=== PATIENT | female | born 1945 | race Caucasian/White ===

== ENCOUNTER 2024-08-24 11:59 | Inpatient (IN) | payer OTHER ==
[~2024-08-24] VITALS: Ht 167.6 cm; Wt 60.0 kg
[~2024-08-24 11:59] MED LIST: NITR-87 PO
--- NOTE | 2024-08-24 12:17 | ED.PDOC ---
Altered Mental Status HPI Comments This is a 79 year old female BIBA presenting to the ED with chief complaint of ALOC. EMS reports that the patient is coming from home where she lives with family with concern of ALOC. EMS relays that the patient's family has noted patient is taking her own Insulin and checking her own blood sugar lately, however, the patient has been confused as of late. EMS states that the patient's blood sugar has been up and down according to family and today patient was more confused than usual. EMS notes patient's BG on scene was 67 and she was A/O x2, but when given glucose, she became A/O x4 soon after. Patent reports having some hip pain at this time. Patient denies any chest pain, SOB, N/V/D, dizziness, headache, fever, or chills. Chief Complaint: ALOC Time Seen by MD: 12:14 Primary Care Provider: ARIELLE Reviewed Notes: Nurses Notes, Medical Program Specialist Notes, Medications, Allergies Allergies: Coded Allergies: NO KNOWN ALLERGIES (Unverified , 09/08/23) Home Meds Active Scripts Nitrofurantoin Monohydrate Mac (Macrobid) 100 Mg Cap, 100 MG PO BID for 10 Days, #20 CAP Prov:YANI MIRANDA MD 09/08/23 Information Source: Patient, Emergency Med Personnel Mode of Arrival: EMS Severity: Moderate Timing: Hours Duration: Since onset Prehospital treatment: None Quality: Decreased Alertness, Change in Behavior, Confusion Recent: None History of: Dementia, Diabetes Past Medical History PAST MEDICAL HISTORY: Dementia, DM, High Lipids, HTN Surgical History (Other): Heart surgery 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 [employer]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 Hx Family History Family History: Reviewed,noncontributory to illness Social History Smoker: Non-Smoker Alcohol: Denies ETOH Use Drugs: Denies Drug Use Lives In: Home Constitutional: denies: chills, diaphoresis, fatigue, fever, malaise, sweats, weakness, others EENTM: denies: blurred vision, double vision, ear bleeding, ear discharge, ear drainage, ear pain, ear ringing, eye pain, eye redness, hearing loss, mouth pain, mouth swelling, nasal discharge, nose bleeding, nose congestion, nose pain, photophobia, tearing, throat pain, throat swelling, voice changes, others Respiratory: denies: cough, hemoptysis, orthopnea, SOB at rest, shortness of breath, SOB with excertion, stridor, wheezing, others Cardiovascular: denies: chest pain, dizzy spells, diaphoresis, Dyspnea on exertion, edema, irregular heart beat, left arm pain, lightheadedness, palpitations, PND, syncope, others Gastrointestinal: denies: abdomen distended, abdominal pain, blood streaked bowels, constipated, diarrhea, dysphagia, difficulty swallowing, hematemesis, melena, nausea, poor appetite, poor fluid intake, rectal bleeding, rectal pain, vomiting, others Genitourinary: denies: abnormal vagina bleeding, burning, dyspareunia, dysuria, flank pain, frequency, hematuria, incontinence, pain, , vagina discharge, urgency, others Neurological: denies: dizziness, fainting, headache, left sided numbness, left sided weakness, numbness, paresthesia, pre-existing deficit, right sided numbness, right sided weakness, seizure, speech problems, tingling, tremors, weakness, others Musculoskeletal: reports: others (Hip pain); denies: back pain, gout, joint pain, joint swelling, muscle pain, muscle stiffness, neck pain Integumetry: denies: bruises, change in color, change in hair/nails, dryness, laceration, lesions, lumps, rash, wounds, others Allergic/Immunocompromised: denies: Difficulty Healing, Frequent Infections, Hives, Itching, others Hematologic/Lymphatic: denies: anemia, blood clots, easy bleeding, easy bruising, swollen glands, others Endocrine: denies: excessive hunger, excessive sweating, excessive thirst, excessive urination, flushing, intolerance to cold, intolerance to heat, unexplained weight gain, unexplained weight loss, others Psychiatric: denies: anxiety, bipolar disorder, depression, hopeless, panic disorder, schizophrenia, sleepless, suicidal, others Unable to Obtain due to: Altered Mental Status All Other Systems: Reviewed and Negative Physical Exam General Appearance: Moderate Distress, Obese HEENT: Normal ENT Inspection, Pharynx Normal, TMs Normal Neck: Full Range of Motion, Non-Tender, Normal, Normal Inspection Respiratory: Chest Non-Tender, Lungs Clear, No Accessory Muscle Use, No Respiratory Distress, Normal Breath Sounds Cardiovascular: No Edema, No JVD, No Murmur, No Gallop, Normal Peripheral Pulses, Regular Rate/Rhythm Breast Exam: Deferred Gastrointestinal: No Organomegaly, Non Tender, No Pulsatile Mass, Normal Bowel Sounds, Soft Genitalia: Deferred Pelvic: Deferred Rectal: Deferred Extremities: No calf tenderness, Normal capillary refill, Normal inspection, Normal range of motion, Non-tender, No pedal edema Musculoskeletal : Apperance: Normal Neurologic: derrick man II-XII nml as Tested, Motor Weakness, Normal Affect, Normal Mood, No Sensory Deficits, Other (The patient's seems somewhat confused) Cerebellar Function: Unable to Test Reflexes: Normal Skin: Dry, Pallor, Warm Lymphatic: No Adenopathy EKG EKG : Pulse Rate (adult): 75 [place]: Normal Cardiac Rhythm: NSR Block: None ST: Nonsp Was a procedure done? Was a procedure done?: No Differential Diagnosis (ALOC) Differential Diagnosis: Dehydration, DKA, Seizure, CVA X-Ray, Labs, Meds, VS Vital Signs Date Time Temp Pulse Resp B/P (MAP) Pulse Ox O2 Delivery O2 Flow Rate FiO2 08/24/24 18:42 97.9 73 10 147/54 (85) 95 97.9 08/24/24 17:10 75 08/24/24 16:35 67 20 145/51 (82) 97 08/24/24 14:47 62 17 134/51 (78) 95 08/24/24 12:30 71 22 97 Room Air* 0 21 08/24/24 12:30 98.0 71 22 148/52 (84) 97 98.0 08/24/24 12:08 98.9 79 16 131/52 (78) 98 98.9 Lab Test 08/24/24 17:59 08/24/24 16:10 08/24/24 14:15 08/24/24 14:05 Range/Units Lactic Acid Level 0.8 0.4-2.0 mmol/L Troponin I High Sensitivity 209 *H 206 *H </=34 ng/L Urine Color Light-yellow Yellow Urine Clarity Turbid H Clear Urine pH 6.5 5.0-9.0 Urine Specific [place] 1.010 1.001-1.035 Urine Protein Negative Negative Urine Ketones Trace Negative Urine Blood Negative Negative /uL Urine Nitrite 2+ H Negative Urine Bilirubin Negative Negative Urine Urobilinogen Normal Negative mg/dL Urine Leukocyte Esterase 3+ Negative /uL Urine RBC 10 0 - 4 /hpf Urine Microscopic WBC 87 H 0-5 /HPF Urine Squamous Epithelial Cells None seen <5 /hpf Urine Bacteria Few H None Seen /hpf Urine Mucus Few None Seen Urine Glucose 2+ H Normal mg/dL Test 08/24/24 12:24 08/24/24 12:21 Range/Units POC Glucose 183 H 70-106 mg/dl White Blood Count 2.5 L 4.4-10.8 10^3/uL Red Blood Count 4.32 4.0-5.20 10^6/uL Hemoglobin 13.1 12.2-16.2 g/dL Hematocrit 37.6 36.0-46.0 % Mean Corpuscular Volume 87.0 80.0-100.0 fL Mean Corpuscular Hemoglobin 30.2 28.0-32.0 pg Mean Corpuscular Hemoglobin Concent 34.7 32.0-36.0 g/dL Red Cell Distribution Width 13.5 11.8-14.3 % Platelet Count 239 140-450 10^3/uL Mean Platelet Volume 7.0 6.9-10.8 fL Neutrophils (%) (Auto) 37.0-80.0 % Lymphocytes (%) (Auto) 10.0-50.0 % Monocytes (%) (Auto) 0.0-12.0 % Basophils (%) (Auto) 0.0-2.0 % Neutrophils # (Auto) 1.6-8.6 10 ^3/uL Lymphocytes # (Auto) 0.4-5.4 10 ^3/uL Monocytes # (Auto) 0-1.3 10 ^3/uL Differential Total Cells Counted 100.0 100 Neutrophils % (Manual) 63 37.0-80.0 Band Neutrophils % (Manual) 3 Lymphocytes % (Manual) 19 10.0-50.0 Monocytes % (Manual) 15 H 0-12 Eosinophils % (Manual) 0 0-7 Basophils % (Manual) 0 0.0-2.0 Metamyelocytes % (manual) 0 Myelocytes % (Manual) 0 Promyelocytes % (Manual) 0 Blast Cells % (Manual) 0 Reactive Lymphocytes 0 Platelet Estimate Adequate Red Blood Cell Morphology Normal Sodium Level 120 L 136-145 mmol/L Potassium Level 4.0 3.5-5.1 mmol/L Chloride Level 87 L 98-107 mmol/L Carbon Dioxide Level 25 20-31 mmol/L Anion Gap 8 5-15 Blood Urea Nitrogen 6 L 9-23 mg/dL Creatinine 0.75 0.550-1.02 mg/dL Glomerular Filtration Rate Calc 81 >90 mL/min BUN/Creatinine Ratio 8.0 L 10.0-20.0 Serum Glucose 184 H 74-106 mg/dL Calcium Level 8.4 L 8.7-10.4 mg/dL Troponin I High Sensitivity 200 *H </=34 ng/L Current Medications Medications (Trade) Dose Ordered Sig/Ayla Route Start Time Stop Time Status Last Admin Ceftriaxone Sodium 50 ml @ 100 mls/hr ONCE ONCE IV 08/24/24 15:15 08/24/24 15:44 DC 08/24/24 15:23 Sodium Chloride 1,000 ml @ 1,000 mls/hr Q1H ONCE IV 08/24/24 15:30 08/24/24 16:29 DC 08/24/24 15:23 Sodium Chloride 1,800 ml @ 1,800 mls/hr ONCE ONCE IV 08/24/24 17:15 08/24/24 18:14 DC 08/24/24 17:51 Vancomycin HCl 200 ml @ 200 mls/hr ONCE ONCE IV 08/24/24 17:15 08/24/24 18:14 DC 08/24/24 17:51 IV Hep-Lock was established. The patient was given normal saline as a bolus We gave the patient normal saline per sepsis protocol The patient was given Rocephin 1 g IV piggyback and then vancomycin IV piggyback after blood cultures x2 were drawn. The patient's 1st troponin level came back at 260 in the 2nd one came back at 209 The patient is leukopenic at 2.5 The rest of the CBC is within normal limits The patient is hyponatremic at 120. We did contact [facility] and they did state that the patient's sodium level has been low. They are working the patient up for SIA We are concerned about the elevated troponin levels We feel that the patient is unstable for transfer at this time. [facility] did give us authorization for admission to the our facility. The authorization #[id number] Images Reviewed?: Images reviewed and evaluated by me Time of 1ST Reevaluation: 17:08 Reevaluation 1ST: Unchanged Patient Education/Counseling: Diagnosis, Treatment Family Education/Counseling: No Family Present Sepsis Sepsis Reasesment Focused Exam Orders: Laboratory Tests 08/24/24 17:59: Lactic Acid Level 0.8 Departure 1 Departure Time of Disposition: 19:56 Impression: Primary Impression: Metabolic encephalopathy Additional Impressions: Sepsis secondary to UTI Hyponatremia Disposition: ADMITTED INPATIENT Admit to: Tele Condition: Fair Critical Care Note Critical Care Time?: Yes (45 min-critical care time only) Stability Stability form required: Yes Unstable for transfer: Telemetry monitoring (Telemetry monitoring required), ED Physician Assesment (Clinical assesment) Heart Score Heart Score: Heart Score Response (Comments) Value History N/A 0 EKG N/A 0 Age N/A 0 Risk Factors N/A 0 Troponin N/A 0 Total 0 I personally scribed for MILLA BUTLER MD ([email or web address]) on 08/24/24 at 12:17. Electronically submitted by Omi Johnson ([email or web address]). MILLA BUTLER MD Aug 24, 2024 12:17
[2024-08-24 12:30] VITALS: PULSE 71; RESP 22; O2SAT 97
[2024-08-24 12:42] LABS: Hematocrit 37.6 % (36.0-46.0); Hemoglobin 13.1 g/dL (12.2-16.2); Mean Corpuscular Hemoglobin 30.2 pg (28.0-32.0); Mean Corpuscular Hgb Conc. 34.7 g/dL (32.0-36.0); Platelet Count (auto) 239 10^3/uL (140-450); Red Blood Cells 4.32 10^6/uL (4.0-5.20); Red Cell Distribution Width 13.5 % (11.8-14.3); White Blood Cell 2.5 10^3/uL (4.4-10.8)
[2024-08-24 12:47] LABS: Anion Gap 8 (5-15); Carbon Dioxide 25 mmol/L (20-31); Chloride 87 mmol/L (98-107); Sodium 120 mmol/L (136-145)
[2024-08-24 12:50] LABS: Basophils % (manual) 0 (0.0-2.0); Blast Cells 0; Eosinophils % (manual) 0 (0-7); Metamyelocytes % 0; Myelocytes % 0; Promyelocytes % 0; Reactive Lymphocytes 0
--- NOTE | 2024-08-24 12:52 | DVH ---
EXAM: XY CHEST PORTABLE Indication: weakness Technique: Single frontal view of the chest was obtained Comparison: None FINDINGS: Lines and Tubes: None Lungs: No focal consolidation. Calcific granuloma projects over the right mid lung. Pleura: No effusion. No pneumothorax. Cardiomediastinal contours: Unremarkable, Atherosclerotic vascular calcifications of the thoracic ao rta are noted. Bones: No acute osseous abnormality. IMPRESSION: No acute cardiopulmonary disease.
[2024-08-24 12:54] LABS: Blood Urea Nitrogen 6 mg/dL (9-23); Calcium 8.4 mg/dL (8.7-10.4); Glucose 184 mg/dL (74-106)
[2024-08-24 13:03] LABS: Band Neutrophils % (manual) 3; Lymphocytes % (manual) 19 (10.0-50.0); Monocytes % (manual) 15 (0-12); Platelet Estimate Adequate; RBC Morphology Normal
[2024-08-24 14:36] LABS: Urine Bacteria FEW /hpf (None Seen); Urine Blood Negative /uL (Negative); Urine Clarity Turbid (Clear); Urine Color Light-Yellow (Yellow); Urine Mucus FEW (None Seen); Urine Protein, UAD Negative (Negative); Urine Squamous Epithelial Cell None Seen /hpf (<5); Urine Urobilinogen Normal (Negative); Urine WBC 87 /HPF (0-5); Urine pH 6.5 (5.0-9.0)
[2024-08-24] MEDS: SODIUM CHLORIDE 0.9% 1,000 ML IV ONE (15:23)
[2024-08-24] MEDS: cefTRIAXone 1GM/50ML D5W 50 ML IV ONE (15:23)
[2024-08-24] MEDS: SODIUM CHLORIDE 0.9% 1,800 ML IV ONE (17:51)
[2024-08-24] MEDS: VANCOMYCIN 1GM/200ML PM 200 ML IV ONE (17:51)
[2024-08-24 20:15] VITALS: PULSE 68; RESP 20; O2SAT 95
--- NOTE | 2024-08-24 20:33 | ECG ---
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
[2024-08-25] VITALS (7 sets, daily range): BP systolic 110–165; BP diastolic 66–79; PULSE 59–76; RESP 18; TEMP 97.9–100; O2SAT 97–99
[2024-08-25] MEDS ORDERED: ONDANSETRON HCL 4 MG/2 ML VIAL IV PRN (00:15)
[2024-08-25] MEDS ORDERED: ACETAMINOPHEN 325 MG TAB PO PRN (00:15)
[2024-08-25] MEDS ORDERED: MORPHINE SULFATE INJ 2 MG/ml SYRG IV PRN ×2 (00:15)
[2024-08-25] MEDS ORDERED: NITROGLYCERIN 0.4 MG SL TAB SL PRN (00:15)
[2024-08-25] MEDS ORDERED: DOCUSATE SOD 100 MG CAP PO PRN (00:15)
[2024-08-25] MEDS ORDERED: TEMAZEPAM 15 MG CAP PO PRN (00:15)
[2024-08-25] MEDS: ENOXAPARIN SOD 40 MG/0.4 ML SYRINGE SC SCH (00:43)
[2024-08-25] MEDS: SODIUM CHLORIDE 0.9% 1,000 ML IV ONE ×2 (00:49→14:10)
[2024-08-25] MEDS: ASPirin 81 mg TAB PO ONE (01:15)
[2024-08-25] MEDS: ATORVASTATIN 20 MG TAB PO ONE (01:15)
[2024-08-25] MEDS: PANTOPRAZOLE 40 MG/10 ML VIAL INJ IV ONE (01:15)
--- NOTE | 2024-08-25 01:44 | DVH ---
RENAL ULTRASOUND CLINICAL HISTORY: check for renal and pararenal area for obstruction TECHNIQUE: Multiple grayscale ultrasound images were obtained through the kidneys and urinary bladder . COMPARISON: None FINDINGS: Right kidney: Measures 9.35 cm. No hydronephrosis. Left kidney: Not visualized due to overlying bowel gas. Urinary bladder: Unremarkable. Prevoid volume is 755 mL IMPRESSION: 1. Left kidney is not visualized. 2. No right hydronephrosis. 3. Urinary bladder is unremarkable.
--- NOTE | 2024-08-25 01:47 | DVHHPRES ---
History of Present Illness Resident Creating Document: ORI LANE RESIDENT History of Present Illness Ms. Dee, 79-year-old female with a past medical history of dementia, diabetes mellitus, hyperlipidemia, atrial fibrillation, and hypertension, CAD s/p CABG, brought in by EMS from home due to altered level of consciousness (ALOC). Family reports that although the patient has been independently managing her insulin and glucose checks, she has shown increasing confusion recently. Today, she was more confused than usual; EMS found her blood glucose at 67, and she improved from A/O x2 to A/O x4 after receiving iv glucose. She also reports hip pain but denies chest pain, shortness of breath, nausea, vomiting, diarrhea, dizziness, headache, fever, or chills. In the ED, she received IV fluids and antibiotics per sepsis protocol for UTI with nonspecific symptoms. Labs revealed leukopenia (WBC 2.5), hyponatremia (Na 120), and elevated troponins (260 and 209) low sodium, and SIADH is under evaluation. Differential includes dehydration, seizure, stroke and possible cardiac involvement. [facility] confirmed authorization #[id number], not stable for transfer. Poor historian, needs further information. Family not reachable/present bedside. Past Medical History dementia, diabetes mellitus, hyperlipidemia, atrial fibrillation, hypertension, CAD Past Surgical History CABG, Family History Non obtainable Smoke: No ALCOHOL: none Drugs: None Lives: with Family Domestic Violence: Neg Review of Systems Constitutional: Yes: Weakness, Malaise; No: Fever, Chills, Sweats, Other Eyes: No: Pain, Vision change, Conjunctivae inflammation, Eyelid inflammation, Other, Redness ENT: No: Ear pain, Ear discharge, Nose pain, Nose discharge, Nose congestion, Mouth pain, Mouth swelling, Throat pain, Throat swelling, Other Respiratory: No: Cough, Dry, Shortness of breath, SOB with excertion, Wheezing, Hemoptysis, Pleuritic Pain, Sputum, Wheezing, Other Cardiovascular: No: Chest Pain, Palpitations, Orthopnea, Paroxysmal Noc. Dyspnea, Edema, Lt Headedness, Other Gastrointestinal: No: Nausea, Vomiting, Abdominal Pain, Diarrhea, Constipation, Melena, Hematochezia, Other Genitourinary: No Dysuria, No Frequency, No Incontinence, No Hematuria, No R etention, No Other Musculoskeletal: No: other, neck pain, shoulder pain, arm pain, back pain, hand pain, leg pain, foot pain Skin: No: Rash, Lesions, Jaundice, Bruising, Other Neurological: Confusion; No: Weakness, Numbness, Incoordination, Change in speech, Seizures, Other Allergies: Coded Allergies: NO KNOWN ALLERGIES (Unverified , 09/08/23) Medications Current Medications Medications Dose Ordered Sig/Ayla Route Start Time Stop Time Status Last Admin Dose Admin Temazepam 15 mg QHSP PRN PO 08/25/24 00:15 Ondansetron HCl 4 mg Q4HP PRN IV 08/25/24 00:15 Docusate Sodium 100 mg BIDPRN PRN PO 08/25/24 00:15 Acetaminophen 650 mg Q6HP PRN PO 08/25/24 00:15 Morphine Sulfate 2 mg Q4HPRN PRN IV 08/25/24 00:15 Enoxaparin Sodium 40 mg DAILY SC 08/25/24 00:15 08/25/24 00:43 40 MG Nitroglycerin 0.4 mg Q5MINP PRN SL 08/25/24 00:15 Morphine Sulfate 2 mg Q30M PRN IV 08/25/24 00:15 Pantoprazole Sodium 40 mg DAILY IV 08/25/24 10:00 Atorvastatin Calcium 40 mg HS PO 08/25/24 22:00 Aspirin 81 mg DAILY PO 08/25/24 10:00 Exam Vital Signs Vital Signs Date Time Temp Pulse Resp B/P (MAP) Pulse Ox O2 Delivery O2 Flow Rate FiO2 08/24/24 22:44 98.3 78 18 128/72 (90) 96 98.3 08/24/24 20:15 Room Air* 0 21 General Appearance: Alert, Oriented X3, Cooperative, mild distress HEENT: Atraumatic, PERRLA, EOMI, Other (dry mucosa) Respiratory: Clear to auscultation, Normal air movement, Other (RA) Cardiovascular: Normal S1, Normal S2, No murmurs, Other (irregular HR in 70- 90s) Abdominal: Normal bowel sounds, Soft, No tenderness, No hepatospenomegaly, No masses, Other (NO cva angle tenderness. ) Extremities: No clubbing, No cyanosis, No edema, Normal pulses, No tenderness/swelling Skin: No rashes, No breakdown, No significant lesion (low turgor ) Neuro: Normal speech, Strength at 5/5 X4 ext (4/5 strength equally ), Normal tone, Sensation intact, Cranial nerves 3-12 NL, Reflexes 2+, Other (deferred gait ) Psych/Mental Status: Mental status NL, Mood NL, Other (AAOx4 surprisingly, slow speech, takes time to response. ) Labs/Xrays Labs Test 08/24/24 17:59 08/24/24 16:10 08/24/24 14:15 08/24/24 12:24 Range/Units Lactic Acid Level 0.8 0.4-2.0 mmol/L Troponin I High Sensitivity 209 *H </=34 ng/L Urine Color Light-yellow Yellow Urine Clarity Turbid H Clear Urine pH 6.5 5.0-9.0 Urine Specific [place] 1.010 1.001-1.035 Urine Protein Negative Negative Urine Ketones Trace Negative Urine Blood Negative Negative /uL Urine Nitrite 2+ H Negative Urine Bilirubin Negative Negative Urine Urobilinogen Normal Negative mg/dL Urine Leukocyte Esterase 3+ Negative /uL Urine RBC 10 0 - 4 /hpf Urine Microscopic WBC 87 H 0-5 /HPF Urine Squamous Epithelial Cells None seen <5 /hpf Urine Bacteria Few H None Seen /hpf Urine Mucus Few None Seen Urine Glucose 2+ H Normal mg/dL POC Glucose 183 H 70-106 mg/dl Test 08/24/24 12:21 Range/Units White Blood Count 2.5 L 4.4-10.8 10^3/uL Red Blood Count 4.32 4.0-5.20 10^6/uL Hemoglobin 13.1 12.2-16.2 g/dL Hematocrit 37.6 36.0-46.0 % Mean Corpuscular Volume 87.0 80.0-100.0 fL Mean Corpuscular Hemoglobin 30.2 28.0-32.0 pg Mean Corpuscular Hemoglobin Concent 34.7 32.0-36.0 g/dL Red Cell Distribution Width 13.5 11.8-14.3 % Platelet Count 239 140-450 10^3/uL Mean Platelet Volume 7.0 6.9-10.8 fL Neutrophils (%) (Auto) 37.0-80.0 % Lymphocytes (%) (Auto) 10.0-50.0 % Monocytes (%) (Auto) 0.0-12.0 % Basophils (%) (Auto) 0.0-2.0 % Neutrophils # (Auto) 1.6-8.6 10 ^3/uL Lymphocytes # (Auto) 0.4-5.4 10 ^3/uL Monocytes # (Auto) 0-1.3 10 ^3/uL Differential Total Cells Counted 100.0 100 Neutrophils % (Manual) 63 37.0-80.0 Band Neutrophils % (Manual) 3 Lymphocytes % (Manual) 19 10.0-50.0 Monocytes % (Manual) 15 H 0-12 Eosinophils % (Manual) 0 0-7 Basophils % (Manual) 0 0.0-2.0 Metamyelocytes % (manual) 0 Myelocytes % (Manual) 0 Promyelocytes % (Manual) 0 Blast Cells % (Manual) 0 Reactive Lymphocytes 0 Platelet Estimate Adequate Red Blood Cell Morphology Normal Sodium Level 120 L 136-145 mmol/L Potassium Level 4.0 3.5-5.1 mmol/L Chloride Level 87 L 98-107 mmol/L Carbon Dioxide Level 25 20-31 mmol/L Anion Gap 8 5-15 Blood Urea Nitrogen 6 L 9-23 mg/dL Creatinine 0.75 0.550-1.02 mg/dL Glomerular Filtration Rate Calc 81 >90 mL/min BUN/Creatinine Ratio 8.0 L 10.0-20.0 Serum Glucose 184 H 74-106 mg/dL Calcium Level 8.4 L 8.7-10.4 mg/dL Assessment/Plan Assessment/Plan #Recurrent Hypoglycemia likely due to poor oral intake #altered level of consciousness, likely due to above, BG 45s CT head to rule out stroke, maintain BG 140-180, aspiration, fall and delirium precautions.PT eval pending. #Metabolic vs toxic encephalopathy, workup in progress. #Dementia, at baseline, lives with family at home. #UTI nonspecific symptoms, on Nitrofurantoin oral suboptimal effect #UTI likely gram -ve no hx known of MDR #Uncomplicated Sepsis dt/above, lactate -ve, UCX, bcx continue -ve lactate iv Rocephin, US renal unremarkable. #Likely autonomic dysfunction continue on telemetry for now, orthostatics to check #Atrial fibrillation, HR in 70s noted in EKG and tele, ? anticoagulation, continue lovenox, Echo pending. #Nonspecific intraventricular conduction delay on EKG #Cardiac Anteroseptal infarct, old, noted on EKG #TYPE II NSTEMI, denies chest pain ASA and Statin continue. 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 #BG 140-180 as per NICE sugar trial DM on insulin SSI check Hba1c #Dyslipidemia on atorvastatin 40 mg daily #Leukopenia close follow up ANC for neutropenia, d/t sepsis #Acute monocities: check COVID and Influenza although chest clear with Spo2 satisfactory #CAD s/p CABG multiple stents ASA and Atorvastatin to continue #Restart diet with when more awake, to avoid aspiration. 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 #Starvation ketonuria, poor nutrition, check electrolytes and correct #Close follow up with repeat CBC, HbA1C, CMP and electrolytes. PUD prophylaxis: protonix 40mg iv DVT prophylaxis: Levonox 40mg. brisk assisted movement. Barriers to discharge: Medical diagnosis and management in progress. Patient lives with family. Need supportive device/wheelchair/person support for ADL. PT and SW consult as needed. Not hemodynamically stable for transfer to [facility]. PCP: Dr. Cruz, (Ney) Case discussed with Dr. Brothers. Code Status: Full Code, goals of care discussion needed total 39 minutes bedside. Plan discussed with: Patient My Orders Orders - ORI L[facility] RESIDENT Procedure Category Date Status Time Admit ADMIT 08/25/24 Transmitted 00:13 Allergies FELIX 08/25/24 In Process 00:13 Code Status CODE 08/25/24 Transmitted 00:13 Temazepam (Restoril) PHA 08/25/24 In Process 00:15 Ondansetron Hcl PHA 08/25/24 In Process (Zofran) 00:15 Docusate Sodium PHA 08/25/24 In Process Capsule (Colace 00:15 Fall Risk Precautions FELIX 08/25/[address] 00:13 Complete Blood Count LAB 08/26/24 Verified 04:00 Comprehensive LAB 08/26/24 Verified Metabolic Panel 04:00 Cardiac DIET 08/25/24 Transmitted Diet-2gna,Lofat,Lochol Breakfast Pt Request For Service PT 08/25/24 Logged 00:13 Echo 2d Mode Cardiac US 08/25/24 Logged DOP 00:13 Condition: Serious FELIX 08/25/24 In Process 00:13 Acetaminophen Tablet PHA 08/25/24 In Process (Tylenol Tablet) 00:15 Bedrest With Bathroom FELIX 08/25/24 In Process Privileg 00:13 Bedside Commode [facility] 08/25/24 In Process 00:13 Morphine Sulfate PHA 08/25/24 In Process Injection 00:15 Enoxaparin Sodium PHA 08/25/24 In Process (Lovenox) 00:15 Nitroglycerin PHA 08/25/24 In Process Sublingual (Ntrostat 00:15 Morphine Sulfate PHA 08/25/24 In Process Injection 00:15 Oxygen By Nasal RT 08/25/24 Transmitted Cannula 00:13 Stat Ekg For Chest [facility] 08/25/24 In Process Pain 00:13 Notify Of Changes [facility] 08/25/24 In Process From Base 00:13 Preschool Teacher For [facility] 08/25/24 In Process 24 Hours 00:13 Emergency Dysrhythmia [facility] 08/25/24 In Process Protocol 00:13 Rhythm Strips Once [facility] 08/25/24 In Process Every Shift 00:13 Urine Bacterial [facility] 08/25/24 Logged Culture 00:32 Kidney US 08/25/24 Resulted 00:32 Urine Potassium LAB 08/25/24 Logged 00:38 Osmolality Urine LAB 08/25/24 Logged 00:38 Complete Blood Count LAB 08/25/24 Logged 04:00 Comprehensive LAB 08/25/24 Logged Metabolic Panel 04:00 Thyroid Stimulating LAB 08/25/24 Logged Hormone 00:41 Osmolality, Serum LAB 08/25/24 Logged 04:00 Sodium Chloride 0.9% PHA 08/25/24 In Process 00:45 Urine LAB 08/25/24 Logged Protein/Creatinine 00:38 Pantoprazole PHA 08/25/24 In Process (Protonix) 10:00 Atorvastatin (Lipitor) PHA 08/25/24 In Process 22:00 Aspirin Tablet PHA 08/25/24 In Process 10:00 Date of Service: Aug 25, 2024 Billing Provider: VIRA BROTHERS MD Common Visit Codes: [id number] INP/OBS CARE (HIGH) Secondary Visit Codes: [id number] CARE PLAN [address] RESIDENT Aug 25, 2024 01:47
[2024-08-25] MEDS: DEXTROSE 50% SYRINGE 50 ML IV ONE (03:25)
[2024-08-25 04:57] LABS: Basophils # (auto) 0 10 ^3/uL (0-0.2); Basophils % (auto) 0.6 % (0.0-2.0); Eosinophils # (auto) 0 10 ^3/uL (0-0.8); Hematocrit 39.1 % (36.0-46.0); Hemoglobin 13.2 g/dL (12.2-16.2); Lymphocytes # (auto) 0.6 10 ^3/uL (0.4-5.4); Lymphocytes % (auto) 18.8 % (10.0-50.0); Mean Corpuscular Hemoglobin 30.1 pg (28.0-32.0); Mean Corpuscular Hgb Conc. 33.8 g/dL (32.0-36.0); Mean Corpuscular Volume 89.2 fL (80.0-100.0); Monocytes # (auto) 0.5 10 ^3/uL (0-1.3); Monocytes % (auto) 15.5 % (0.0-12.0); Neutrophils # (auto) 2.1 10 ^3/uL (1.6-8.6); Neutrophils % (auto) 65.1 % (37.0-80.0); Nucleated Red Blood Cells % 0.4 %; Platelet Count (auto) 214 10^3/uL (140-450); Red Blood Cells 4.39 10^6/uL (4.0-5.20); Red Cell Distribution Width 13.6 % (11.8-14.3); White Blood Cell 3.2 10^3/uL (4.4-10.8)
[2024-08-25 05:13] LABS: Alanine Aminotransferase 25 U/L (7-40); Albumin 3.3 g/dL (3.2-4.8); Anion Gap 9 (5-15); Magnesium 1.7 mg/dL (1.6-2.6); Phosphorus 3.2 mg/dL (2.4-5.1); Total Protein 5.9 g/dL (5.7-8.2)
[2024-08-25 05:14] LABS: Bilirubin, Total 0.3 mg/dL (0.2-1.0)
[2024-08-25 05:15] LABS: Chloride 98 mmol/L (98-107); Potassium 3.3 mmol/L (3.5-5.1); Sodium 126 mmol/L (136-145)
[2024-08-25 05:16] LABS: Alkaline Phosphatase 126 U/L (46-116); Aspartate Aminotransferase 52 U/L (0-34); BUN/Creatinine Ratio 8.3 (10.0-20.0); Blood Urea Nitrogen < 5 mg/dL (9-23); Calcium 7.4 mg/dL (8.7-10.4); Carbon Dioxide 19 mmol/L (20-31); Glucose 127 mg/dL (74-106)
--- NOTE | 2024-08-25 06:21 | DVH ---
EXAM: CT HEAD WITHOUT CONTRAST INDICATION: rule out stroke, altered consciousness TECHNIQUE: CT of the head without intravenous contrast. Coronal and sagittal reformatted images are s ubmitted. Radiation Dose : 1. Head: CT Dose: CTDI volume is 60.5 mGy. Dose-length product is 1190.1 mGy*cm The dose indicators for CT are the volume Computed Tomography (CT) Dose Index (CTDIvol) and the Dose Length Product (DLP), and are measured in units of mGy and mGy-cm, respectively. These indicators are not patient dose, but values generated from the CT scanner acquisition factors. The report includes radiation exposure data for exposures received during this examination. All CT scans at this medical facility are performed using dose modulation techniques as appropriate to a performed exam including the following: Automated exposure control was utilized; adjustment of the MA and/or KV according to patient size; and use of iterative reconstruction technique. COMPARISON: None FINDINGS: There is no evidence of acute intracranial hemorrhage, extra-axial collection, mass effect, midline s hift, herniation or hydrocephalus. There are periventricular and subcortical hypodensities, nonspecific, but likely reflecting sequelae of chronic microvascular ischemic changes. The ventricles, sulci and cisterns are age appropriate. The childress-white differentiation is intact. The visualized paranasal sinuses and mastoid air cells are clear. No depressed calvarial fracture. The surrounding soft tissues are unremarkable. IMPRESSION: 1. No evidence of acute intracranial abnormality.
--- NOTE | 2024-08-25 09:33 | DVHPNRES ---
Progress Note Date Seen: Aug 25, 2024 Resident Creating Document: EPIFANIO GILBERT RESIDENT Medical Necessity Reason Pt with a Central, PICC or Fol: No Subjective Review of Systems Ms. Dee, 79-year-old female with a past medical history of dementia, diabetes mellitus, hyperlipidemia, atrial fibrillation, and hypertension, CAD s/p CABG, brought in by EMS from home due to altered level of consciousness (ALOC). Family reports that although the patient has been independently managing her insulin and glucose checks, she has shown increasing confusion recently. Today, she was more confused than usual; EMS found her blood glucose at 67, and she improved from A/O x2 to A/O x4 after receiving iv glucose. She also reports hip pain but denies chest pain, shortness of breath, nausea, vomiting, diarrhea, dizziness, headache, fever, or chills. In the ED, she received IV fluids and antibiotics per sepsis protocol for UTI with nonspecific symptoms. Labs revealed leukopenia (WBC 2.5), hyponatremia (Na 120), and elevated troponins (260 and 209) low sodium, and SIADH is under evaluation. Differential includes dehydration, seizure, stroke and possible cardiac involvement. [facility] confirmed authorization #[id number], not stable for transfer. Poor historian, needs further information. Family not reachable/present bedside. PCP: Dr. Cruz, ([facility]) Past medical /surgical history: Dementia, diabetes mellitus type 2 for the past 18 years, hyperlipidemia, ?atrial fibrillation, hypertension, CAD status post CABG Patient seen and examined at the bedside. Started full liquid diet. Patient is becoming more oriented and alert. Objective vital signs Vital Sign Date Time Temp Pulse Resp B/P (MAP) Pulse Ox O2 Delivery O2 Flow Rate FiO2 08/25/24 07:39 100.0 61 18 150/70 (96) 97 100.0 08/25/24 06:16 Room Air* 0 21 Total Intake and Output 08/24/24 08/24/24 08/25/24 15:00 23:00 07:00 Intake Total 3050 ml Balance 3050 ml medications Current Medications Medications Dose Ordered Sig/Ayla Route Start Time Stop Time Status Last Admin Dose Admin Temazepam 15 mg QHSP PRN PO 08/25/24 00:15 Ondansetron HCl 4 mg Q4HP PRN IV 08/25/24 00:15 Docusate Sodium 100 mg BIDPRN PRN PO 08/25/24 00:15 Acetaminophen 650 mg Q6HP PRN PO 08/25/24 00:15 Morphine Sulfate 2 mg Q4HPRN PRN IV 08/25/24 00:15 Enoxaparin Sodium 40 mg DAILY SC 08/25/24 00:15 08/25/24 00:43 40 MG Nitroglycerin 0.4 mg Q5MINP PRN SL 08/25/24 00:15 Morphine Sulfate 2 mg Q30M PRN IV 08/25/24 00:15 Pantoprazole Sodium 40 mg DAILY IV 08/25/24 10:00 Atorvastatin Calcium 40 mg HS PO 08/25/24 22:00 Aspirin 81 mg DAILY PO 08/25/24 10:00 Examination Patient lying in bed, in no acute distress General: Well-built, afebrile, palor, mucosae are moist Cardiovascular: Regular S1 and S2. No murmurs, gallops or rubs. No JVD elevation. No pedal edema Respiratory: Normal B/L air entry on room air. Clear lung sounds on auscultation Abdomen: Soft, tender, nondistended, normoactive bowel sounds, no rebound tenderness, no organomegaly, no masses Genitourinary: Deferred MSK/skin: Mobilizes 4 limbs. Skin is dry and warm Neurological: No motor, no sensitive deficits, normal speech. Pupils are isocoric and reactive. Psych/Mental Status: A/Ox3 laboratory and microbiology Laboratory Tests 08/25/24 04:40 Test 08/25/24 04:40 Range/Units Serum Glucose 127 H 74-106 mg/dL Labs and/or images reviewed: Labs reviewed by me, Image(s) reviewed by me Problem List/Assessment/Plan Problem List/Assessment/Plan Altered level of consciousness likely secondary to hypoglycemia Acute metabolic encephalopathy History of dementia Starvation ketonuria Uncontrolled Diabetes mellitus-A1c 8.5 Follow up with the echocardiogram -NS 75 mL/hour -Accu-Cheks -hold insulin Lantus Seizure precaution, fall precaution Head CT showed no evidence of acute intracranial hemorrhage NSTEMI type 2 History of CAD status post CABG Continue ASA and atorvastatin EKG, unremarkable Chest x-ray unremarkable Hypotonic hypovolemic hyponatremia serum osmolality 254 sodium increased from 120-126 Follow up with repeat sodium IV NS 75 cc/hour Hypertension Holding antihypertensive at this point Takes amlodipine 5 mg, atenolol 25 mg, losartan 50 mg daily ? Autonomic dysfunction Ruled out orthostatic hypotension Orthostatic vital pending Ruled out sepsis. Leukopenia secondary to sepsis Acute cystitis.. Continue IV ceftriaxone Urine bacterial culture pending Kidney ultrasound unremarkable Dyslipidemia Continue atorvastatin 40 mg daily Protonix for GI prophylaxis Lovenox 40 mg sc daily Plan discussed with patient in which all questions have been answered Goals of care discussed for more than 30 minutes, full code status Case discussed with Dr. Sanchez. Unstable for transfer to [facility] Plan discussed with: Patient My Orders My Orders Orders - EPIFANIO GILBERT Procedure Category Date Status Time Vitamin D, 25-Hydroxy LAB 08/25/24 In Process 08:17 Drug Screen LAB 08/25/24 Logged 08:17 PTPTT LAB 08/25/24 Logged 08:17 Ceftriaxone Ivpb PHA 08/26/24 Transmitted Rocephin 09:00 Ceftriaxone Ivpb PHA 08/25/24 Transmitted Rocephin 09:30 NS PHA 08/25/24 Transmitted 09:30 Full Liq Diet DIET 08/25/24 Transmitted Breakfast Rapid Influenza A&B LAB 08/25/24 Transmitted 09:28 Osmolality Urine LAB 08/25/24 Transmitted 09:28 Date of Service: Aug 25, 2024 Billing Provider: ANN SANCHEZ MD Common Visit Codes: [id number] INP/OBS CARE(HIGH) Secondary Visit Codes: [id number] CARE PLAN 30 MINUTES EPIFANIO GILBERT RESIDENT Aug 25, 2024 09:33 ANN SANCHEZ MD Aug 26, 2024 22:01
[2024-08-25] MEDS: ASPirin 81 mg TAB PO SCH (09:50)
[2024-08-25] MEDS: PANTOPRAZOLE 40 MG/10 ML VIAL INJ IV SCH (09:50)
[2024-08-25] MEDS: POTASSIUM CHLORIDE 40 MEQ, LIDOCAINE 1% (LOCAL ANESTH.) 4 ML in SODIUM CHL 0.9% 250 ML IV ONE (09:51)
[2024-08-25 10:37] LABS: INR 1.08 (0.9-1.15); Partial Thromboplastin Time 35.3 SEC (24.5-34.5); Prothrombin Time 11.4 sec (9.3-11.8)
[2024-08-25] MEDS: cefTRIAXone 1GM/50ML D5W 50 ML IV ONE (14:10)
[2024-08-25] MEDS ORDERED: DEXTROSE (50%) 50ML SYRG IV PRN (16:30)
[2024-08-25] MEDS ORDERED: SODI1TAB2 OR (18:52)
[2024-08-25] MEDS ORDERED: AMLO1TAB22 PO (18:52)
[2024-08-25] MEDS ORDERED: ATOR40TA52 PO (18:52)
[2024-08-25] MEDS ORDERED: ASPI-543 PO (18:52)
[2024-08-25] MEDS ORDERED: INSU100I70 SC (18:52)
[2024-08-25] MEDS ORDERED: LOSA-533 PO (18:52)
[2024-08-25] MEDS ORDERED: ATEN-60 PO (18:52)
[2024-08-25] MEDS ORDERED: INSLISPI SC (18:52)
[2024-08-25] MEDS: InsuLIN REG 1unit/0.01ml Soln (100units/ml) SC SCH (20:00)
[2024-08-25] MEDS: ACCU-CHEK COMFORT CURVE STRIP VI SCH (20:00)
[2024-08-25] MEDS: ATORVASTATIN 20 MG TAB PO SCH (21:02)
[2024-08-26] VITALS (8 sets, daily range): BP systolic 129–158; BP diastolic 54–94; PULSE 67–100; RESP 16–18; TEMP 97.3–98.3; O2SAT 78–100
[2024-08-26 04:52] LABS: Base Excess -4.4 mmol/L (-2.0-3.0)
--- NOTE | 2024-08-26 04:59 | ECG ---
[facility] Test Date: 2024-08-26 Test Time: 04:35:29 Pat Name: DEE MASSEY Department: Respiratoy Room: 0233T A Gender: F Concrete Curer: : 1945 Requested By: ORI LANE Order Number: [id number] Reading MD: Bronson Hutton Measurements Intervals [place] Rate: 64 P: 82 ME: 213 QRS: 27 QRSD: 94 T: 3 QT: 423 QTc: 437 Interpretive Statements Sinus rhythm Borderline prolonged ME interval Anterior infarct, old Electronically Signed On 08-27-2024 17:35:38 PDT by Bronson Hutton Please click the below link to view image of tracing.
[2024-08-26 05:06] LABS: Hematocrit 40.2 % (36.0-46.0); Hemoglobin 13.8 g/dL (12.2-16.2); Mean Corpuscular Hemoglobin 30.1 pg (28.0-32.0); Mean Corpuscular Hgb Conc. 34.4 g/dL (32.0-36.0); Mean Corpuscular Volume 87.4 fL (80.0-100.0); Platelet Count (auto) 223 10^3/uL (140-450); Red Cell Distribution Width 13.8 % (11.8-14.3); White Blood Cell 3.5 10^3/uL (4.4-10.8)
[2024-08-26 05:10] LABS: Band Neutrophils % (manual) 0; Basophils % (manual) 0 (0.0-2.0); Blast Cells 0; Eosinophils % (manual) 0 (0-7); Metamyelocytes % 0; Myelocytes % 0; Promyelocytes % 0
[2024-08-26 05:12] LABS: Alanine Aminotransferase 33 U/L (7-40); Albumin 3.4 g/dL (3.2-4.8); Alkaline Phosphatase 124 U/L (46-116); Anion Gap 10 (5-15); Aspartate Aminotransferase 66 U/L (<34); BUN/Creatinine Ratio 8.1 (10.0-20.0); Bilirubin, Total 0.3 mg/dL (0.2-1.0); Blood Urea Nitrogen 7 mg/dL (9-23); Calcium 8.7 mg/dL (8.7-10.4); Carbon Dioxide 21 mmol/L (20-31); Chloride 100 mmol/L (98-107); Glucose 134 mg/dL (74-106); Magnesium 1.7 mg/dL (1.6-2.6); Potassium 3.8 mmol/L (3.5-5.1); Sodium 131 mmol/L (136-145); Total Protein 5.9 g/dL (5.7-8.2)
[2024-08-26 05:21] LABS: Protein, Urine 27.4 mg/dL (1-14)
[2024-08-26 05:24] LABS: Creatinine, Urine 30.29 mg/dL (30.0-125.0); Urine Protein/Creatinine Ratio 0.9
[2024-08-26 05:29] LABS: Amphetamine Screen, Urine Neg (NEGATIVE); Barbiturate Scree,Urine Neg (NEGATIVE); Benzodiazephine Screen, Urine Neg (NEGATIVE); Cannabinoid Screen, Urine Neg (NEGATIVE); Cocaine Screen, Urine Neg (NEGATIVE); Opiate Scree,Urine Neg (NEGATIVE); Phencyclidine Screen, Urine Neg (NEGATIVE)
--- NOTE | 2024-08-26 05:57 | RESUS ---
CODE ASSIST ASSESSSMENT Initial Information Code Assist Date: Aug 26, 2024 Code Assist Time: : Location of Arrest: [facility] Room # 233 Provider Name Andrew Time Notified: 04:27 Time PMD returned call: 04:27 Crash Cart Opened and Supplies: No Situation Situation comment: Rapid response initially called at 0418. While pt was ambulating from bathroom to bed, went weak and unresponsive. Pt was assessed and deemed by hospitalists that pt cleared and rapid cancelled. VS - TPR 97.3F-81-16 @ 99% on RA, BP 143/54. FSBS 129. While discussing with providers, deemed to test orthostatic VS @ 0427. Pt was assisted up and while attempting to obtain a blood pressure, pt went unresponsive, eyes rolled back, and pt began guppy breathing. Pt was moved onto bed, pads placed. Background Background: Pt admitted on 08/25/24 for UTI with urosepsis Assessment Temperature (Fahrenheit): 97.3 (F; axillary) Blood Pressure Systolic: 151 Blood Pressure Diastolic: 57 Respiratory Rate: 18 O2 Sat by Pulse Oximetry: 100 Bedside Blood Glucose: 129 Assessment comment: Pt was placed on 2L O2 via NC. HR 65. Pt steadily became A&Ox4, responding to nursing staff while assessing and placing liz. Pt to remain tele status on bedrest. Recommendations/Interventions Procedures: Accu check (129), ABG, CMP, Troponin, EKG (SR @ 64), O2 Mask/NC (2L O2 NC) Other Interventions Ordered by Resident Morales: CMP, ABG, Trop, blood culture, urine culture; liz placement Outcome Outcome: Problem Resolved Team Members Team Members Resident Dr Morales; RAYMUNDO Lynn - Hospitalist; Camille Morley RN - ICU Charge; Olga Lidia Velasco RN - Agricultural Science Professor; Brie Dunaway RN - [place] visitor services information assistant; Lilly Carranza, RT; Lissette Carranza, RN; Mecca Farfan RN; NABEEL Petit; NABEEL Bay Ashley Aug 26, 2024 05:57
[2024-08-26 06:42] LABS: Lymphocytes % (manual) 51 (10.0-50.0); Monocytes % (manual) 11 (0-12); Platelet Estimate Adequate; Reactive Lymphocytes 2
[2024-08-26] MEDS ORDERED: D5W/LACTATED RINGERS 1,000 ML IV SCH ×2 (07:15→08:30)
[2024-08-26 08:08] LABS: Rapid Influenza A Negative (Negative); Rapid Influenza B Negative (Negative)
[2024-08-26 08:13] LABS: COVID19 ANTIGEN SOFIA FIA POSITIVE (NEGATIVE)
[2024-08-26] MEDS: cefTRIAXone 1GM/50ML D5W 50 ML IV SCH (09:07)
--- NOTE | 2024-08-26 15:32 | DVHPNRES ---
Progress Note Date Seen: Aug 26, 2024 Resident Creating Document: CRIS SHAH RESIDENT Medical Necessity Reason Pt with a Central, PICC or Fol: No Subjective Review of Systems Patient seen and examined at bedside, patient is feeling better and patient is more oriented today Objective vital signs Vital Sign Date Time Temp Pulse Resp B/P (MAP) Pulse Ox O2 Delivery O2 Flow Rate FiO2 08/26/24 13:00 97.8 76 16 143/72 (95) 100 97.8 08/26/24 08:00 Room Air* 0 21 Total Intake and Output 08/25/24 08/25/24 08/26/24 15:00 23:00 07:00 Intake Total 1904 ml 400 ml Output Total 3 ml Balance 1901 ml 400 ml medications Current Medications Medications Dose Ordered Sig/Ayla Route Start Time Stop Time Status Last Admin Dose Admin Temazepam 15 mg QHSP PRN PO 08/25/24 00:15 Ondansetron HCl 4 mg Q4HP PRN IV 08/25/24 00:15 Docusate Sodium 100 mg BIDPRN PRN PO 08/25/24 00:15 Acetaminophen 650 mg Q6HP PRN PO 08/25/24 00:15 Morphine Sulfate 2 mg Q4HPRN PRN IV 08/25/24 00:15 Enoxaparin Sodium 40 mg DAILY SC 08/25/24 00:15 08/26/24 09:07 40 MG Nitroglycerin 0.4 mg Q5MINP PRN SL 08/25/24 00:15 Morphine Sulfate 2 mg Q30M PRN IV 08/25/24 00:15 Pantoprazole Sodium 40 mg DAILY IV 08/25/24 10:00 08/26/24 09:07 40 MG Atorvastatin Calcium 40 mg HS PO 08/25/24 22:00 08/25/24 21:02 40 MG Aspirin 81 mg DAILY PO 08/25/24 10:00 08/26/24 09:07 81 MG Ceftriaxone Sodium 50 ml @ 100 mls/hr DAILY@09 IV 08/26/24 09:00 08/26/24 09:07 100 MLS/HR Diagnostic Test (Pha) 1 strip IQ4HR 08/25/24 20:00 08/26/24 12:01 1 STRIP Insulin Human Regular IQ4HR SC 08/25/24 20:00 08/26/24 12:04 3 UNITS Dextrose 50 ml UD PRN IV 08/25/24 16:30 Zinc Sulfate 220 mg DAILY PO 08/27/24 10:00 Ascorbic Acid 500 mg DAILY PO 08/27/24 10:00 Examination General: Well-built, afebrile, palor, mucosae are moist Cardiovascular: Regular S1 and S2. No murmurs, gallops or rubs. No JVD elevation. No pedal edema Respiratory: Normal B/L air entry on room air. Clear lung sounds on auscultation Abdomen: Soft, tender, nondistended, normoactive bowel sounds, no rebound tenderness, no organomegaly, no masses Genitourinary: Deferred MSK/skin: Mobilizes 4 limbs. Skin is dry and warm Neurological: No motor, no sensitive deficits, normal speech. Pupils are isocoric and reactive. Psych/Mental Status: A/Ox3 laboratory and microbiology Laboratory Tests 08/26/24 04:40 Test 08/26/24 04:40 Range/Units Serum Glucose 134 H 74-106 mg/dL Microbiology Date/Time Source Procedure Growth Status 08/24/24 17:59 Blood Blood Culture - Preliminary NO GROWTH AFTER 24 HOURS OF INCUBATION. Resulted Problem List/Assessment/Plan Problem List/Assessment/Plan Altered level of consciousness likely secondary to hypoglycemia/COVID pneumonia COVID pneumonia Acute metabolic encephalopathy due to hypoglycemia vs COVID pneumonia History of dementia Starvation ketonuria Uncontrolled Diabetes mellitus-A1c 8.5 Follow up with the echocardiogram -COVID positive -NS 75 mL/hour -Accu-Cheks -hold insulin Lantus Seizure precaution, fall precaution Head CT showed no evidence of acute intracranial hemorrhage NSTEMI type 2 History of CAD status post CABG Continue ASA and atorvastatin EKG, unremarkable Chest x-ray unremarkable Hypotonic hypovolemic hyponatremia serum osmolality 254 sodium increased from 120-126 Follow up with repeat sodium IV NS 75 cc/hour Hypertension Holding antihypertensive at this point Takes amlodipine 5 mg, atenolol 25 mg, losartan 50 mg daily ? Autonomic dysfunction Ruled out orthostatic hypotension Orthostatic vital pending Ruled out sepsis. Leukopenia secondary to sepsis Acute cystitis.. Continue IV ceftriaxone Urine bacterial culture pending Kidney ultrasound unremarkable Dyslipidemia Continue atorvastatin 40 mg daily Protonix for GI prophylaxis Lovenox 40 mg sc daily Unstable for transfer to [place] Goals of care discussed for 23 minutes, full code status Case discussed with Dr. Midou. Plan discussed with: Patient My Orders My Orders Orders - CRIS SHAH Procedure Category Date Status Time Zinc Sulfate PHA 08/27/24 In Process 10:00 Ascorbic Acid Tablet PHA 08/27/24 In Process (Vitamin C Tablet) 10:00 Date of Service: Aug 26, 2024 Billing Provider: ANN VASQUEZ MD Common Visit Codes: [id number] INP/OBS CARE(HIGH) CRIS SHAH Aug 26, 2024 15:32 ANN VASQUEZ MD Aug 26, 2024 22:01
--- NOTE | 2024-08-26 16:55 | DVHSR ---
APPROVED REPORT EXAM: Two-dimensional and M-mode echocardiogram with Doppler and color Doppler. Blood Pressure: 150/70 mmHg INDICATION Rule out structural disease in hemodynamically challenged RISK FACTORS Height: 66, Weight: 149 DIMENSIONS LVDd4.1 (3.8-5.7cm)LA (2D)3.8 (1.9-4.0cm)Aortic Root2.9 (2.0-3.7cm) LVDs2.9 (2.5-4.0cm)LA (MM) (1.9-4.0cm)Aortic Cusp Exc1.3 (1.5-2.0cm) EF (%) 57.0 (55-70%)Rt. Atrium3.6 (1.9-4.0cm)Asc. Aorta cm IVSd1.2 (0.7-1.1cm)RV (D) (1.8-2.4cm) PWd1.3 (0.7-1.1cm) Mitral Valve MitralMitral Stenosis E wave0.77m/sMV Mean GR.mmHg A wave0.75m/sMV Peak GR.148mmHg E/A ratio1.02D MVAcm2 DECEL [id number] 1/2 [id number] IVRTmsDop MVA2.87cm2 Aortic Valve Aortic ValveAortic Stenosis V10.72m/Leonor Mean GR.9mmHg V21.88m/Leonor Peak GR.14mmHg LVOT Diameter2.0 (1.8-2.4cm)Doppler AVA1.20cm2 Pulmonic Valve V20.91m/s Other Information Technically limited study due to body habitus. Conclusion Technically good study. Sinus rhythm. Mild left atrial enlargement. Valves are normal. EF of 60% with normal RV function. Mild TR. Mild MR. No pericardial effusion masses or vegetations.
[2024-08-26] MEDS: ASCORBIC ACID 500 MG TAB PO ONE (17:22)
[2024-08-26] MEDS: ZINC SULFATE 220mg CAP or TAB PO ONE (17:23)
[2024-08-26] MEDS: hydrALAZINE HCL 20 MG/ML VL IV PRN (21:28)
[2024-08-27 01:00] VITALS: BP 140/62; PULSE 91; RESP 16; TEMP 97.5; O2SAT 95
[2024-08-27 05:00] VITALS: BP 147/76; PULSE 76; RESP 18; TEMP 98.1; O2SAT 100
[2024-08-27 06:05] LABS: Basophils # (auto) 0.1 10 ^3/uL (0-0.2); Basophils % (auto) 1.7 % (0.0-2.0); Eosinophils # (auto) 0 10 ^3/uL (0-0.8); Eosinophils % (auto) 0.4 % (0.0-7.0); Hematocrit 40.6 % (36.0-46.0); Hemoglobin 14.2 g/dL (12.2-16.2); Lymphocytes # (auto) 1.5 10 ^3/uL (0.4-5.4); Lymphocytes % (auto) 46.1 % (10.0-50.0); Mean Corpuscular Hemoglobin 30.2 pg (28.0-32.0); Mean Corpuscular Volume 86.4 fL (80.0-100.0); Monocytes # (auto) 0.5 10 ^3/uL (0-1.3); Neutrophils # (auto) 1.1 10 ^3/uL (1.6-8.6); Neutrophils % (auto) 35.8 % (37.0-80.0); Nucleated Red Blood Cells % 0.5 %; Platelet Count (auto) 229 10^3/uL (140-450); Red Cell Distribution Width 13.6 % (11.8-14.3); White Blood Cell 3.1 10^3/uL (4.4-10.8)
[2024-08-27 06:15] LABS: Anion Gap 11 (5-15); Carbon Dioxide 24 mmol/L (20-31)
[2024-08-27 06:16] LABS: Calcium 8.8 mg/dL (8.7-10.4)
[2024-08-27 06:20] LABS: Chloride 94 mmol/L (98-107); Potassium 3.5 mmol/L (3.5-5.1); Sodium 129 mmol/L (136-145)
[2024-08-27 06:21] LABS: BUN/Creatinine Ratio 7.4 (10.0-20.0); Blood Urea Nitrogen < 5 mg/dL (9-23); Glucose 119 mg/dL (74-106)
[2024-08-27 08:00] VITALS: PULSE 85
[2024-08-27 08:55] VITALS: BP 145/81; PULSE 82; RESP 17; TEMP 97.5; O2SAT 100
[2024-08-27] MEDS: ZINC SULFATE 220mg CAP or TAB PO SCH (09:48)
[2024-08-27] MEDS: ASCORBIC ACID 500 MG TAB PO SCH (09:48)
[2024-08-27] MEDS ORDERED: NITR-87 PO (12:23)
[2024-08-27] MEDS ORDERED: ASCO500T11 PO (12:23)
--- NOTE | 2024-08-27 12:25 | DVHDSRES ---
Discharge Summary Date of Admission Resident Creating Document: CRIS SHAH RESIDENT Aug 25, 2024 at 00:13 Date of Discharge: Aug 27, 2024 Labs/Diagnostic Data: Laboratory Results Test 08/27/24 09:39 08/27/24 05:35 08/26/24 09:40 08/26/24 08:00 POC Glucose 281 mg/dl (70-106) White Blood Count 3.1 10^3/uL (4.4-10.8) Red Blood Count 4.70 10^6/uL (4.0-5.20) Hemoglobin 14.2 g/dL (12.2-16.2) Hematocrit 40.6 % (36.0-46.0) Mean Corpuscular Volume 86.4 fL (80.0-100.0) Mean Corpuscular Hemoglobin 30.2 pg (28.0-32.0) Mean Corpuscular Hemoglobin Concent 35.0 g/dL (32.0-36.0) Red Cell Distribution Width 13.6 % (11.8-14.3) Platelet Count 229 10^3/uL (140-450) Mean Platelet Volume 7.0 fL (6.9-10.8) Neutrophils (%) (Auto) 35.8 % (37.0-80.0) Lymphocytes (%) (Auto) 46.1 % (10.0-50.0) Monocytes (%) (Auto) 16.0 % (0.0-12.0) Eosinophils (%) (Auto) 0.4 % (0.0-7.0) Basophils (%) (Auto) 1.7 % (0.0-2.0) Neutrophils # (Auto) 1.1 10 ^3/uL (1.6-8.6) Lymphocytes # (Auto) 1.5 10 ^3/uL (0.4-5.4) Monocytes # (Auto) 0.5 10 ^3/uL (0-1.3) Eosinophils # (Auto) 0 10 ^3/uL (0-0.8) Basophils # (Auto) 0.1 10 ^3/uL (0-0.2) Nucleated Red Blood Cells 0.5 % Sodium Level 129 mmol/L (136-145) Potassium Level 3.5 mmol/L (3.5-5.1) Chloride Level 94 mmol/L (98-107) Carbon Dioxide Level 24 mmol/L (20-31) Anion Gap 11 (5-15) Blood Urea Nitrogen < 5 mg/dL (9-23) Creatinine 0.68 mg/dL (0.550-1.02) Glomerular Filtration Rate Calc 89 mL/min (>90) BUN/Creatinine Ratio 7.4 (10.0-20.0) Serum Glucose 119 mg/dL (74-106) Calcium Level 8.8 mg/dL (8.7-10.4) Troponin I High Sensitivity 268 ng/L (</=34) Influenza Type A Antigen Negative (Negative) Influenza Type B Antigen Negative (Negative) SARS-CoV-2 Antigen (Rapid) Positive (NEGATIVE) Test 08/26/24 04:45 08/26/24 04:42 08/26/24 04:40 08/25/24 10:00 Urine Osmolality 309 mOsm/kg Urine Creatinine 30.29 mg/dL (30.0-125.0) Urine Microalbumin 119.0 mg/L (<30.0) Urine Protein/Creatinine Ratio 0.90 Urine Potassium 22 mmol/L (12-62) Urine Total Protein 27.4 mg/dL (1-14) Urine Opiates Screen Neg (NEGATIVE) Urine Fentanyl Screen Neg (NEGATIVE) Urine Barbiturates Screen Neg (NEGATIVE) Urine Phencyclidine Screen Neg (NEGATIVE) Urine Amphetamines Screen Neg (NEGATIVE) Urine Benzodiazepines Screen Neg (NEGATIVE) Urine Cocaine Screen Neg (NEGATIVE) Urine Cannabinoids Screen Neg (NEGATIVE) Blood Gas Specimen Type Arterial Blood Gas Sample Site Right brachial Blood Gas Patient Temperature 37.0 Arterial Blood Date Drawn [id number] Arterial Blood pH 7.417 (7.350-7.450) Arterial Blood Partial Pressure CO2 29.8 mmHg (32.0-45.0) Arterial Blood Partial Pressure O2 112.7 mmHg (83.0-108.0) Arterial Blood HCO3 18.8 mmol/L (21.0-28.0) Arterial Blood Oxygen Saturation 98.0 % (94.0-98.0) Arterial Blood Base Excess -4.4 mmol/L (-2.0-3.0) Arterial Blood Oxyhemoglobin 97.2 % (94.0-98.0) Arterial Blood Carboxyhemoglobin 0.3 % (0.5-1.5) Arterial Blood Methemoglobin 0.5 % (0.0-1.5) Matty Test N/a Blood Gas Total Hemoglobin 14.50 g/dL (12.0-16.0) Blood Gas Liter Flow 2.00 Blood Gas Modality Nasal cannula FiO2 % 28.0 Differential Total Cells Counted 100.0 (100) Neutrophils % (Manual) 36 (37.0-80.0) Band Neutrophils % (Manual) 0 Lymphocytes % (Manual) 51 (10.0-50.0) Monocytes % (Manual) 11 (0-12) Eosinophils % (Manual) 0 (0-7) Basophils % (Manual) 0 (0.0-2.0) Metamyelocytes % (manual) 0 Myelocytes % (Manual) 0 Promyelocytes % (Manual) 0 Blast Cells % (Manual) 0 Reactive Lymphocytes 2 Platelet Estimate Adequate Magnesium Level 1.7 mg/dL (1.6-2.6) Total Bilirubin 0.3 mg/dL (0.2-1.0) Aspartate Amino Transferase (AST) 66 U/L (<34) Alanine Aminotransferase (ALT) 33 U/L (7-40) Alkaline Phosphatase 124 U/L (46-116) Total Protein 5.9 g/dL (5.7-8.2) Albumin 3.4 g/dL (3.2-4.8) Prothrombin Time 11.4 sec (9.3-11.8) Prothrombin Time INR 1.08 (0.9-1.15) Activated Partial Thromboplast Time 35.3 SEC (24.5-34.5) Test 08/25/24 04:40 08/24/24 17:59 08/24/24 14:15 08/24/24 12:21 Hemoglobin A1c 8.5 % A1C (<5.7) Serum Osmolality 254 mOsm/kg (278-298) Phosphorus Level 3.2 mg/dL (2.4-5.1) Vitamin B12 Level 1433 pg/mL (211-911) Vitamin D 25-Hydroxy 55.4 ng/mL (30.0-100) Thyroid Stimulating Hormone (TSH) 2.93 uIU/mL (0.55-4.78) Lactic Acid Level 0.8 mmol/L (0.4-2.0) Urine Color Light-yellow (Yellow) Urine Clarity Turbid (Clear) Urine pH 6.5 (5.0-9.0) Urine Specific [place] 1.010 (1.001-1.035) Urine Protein Negative (Negative) Urine Ketones Trace (Negative) Urine Blood Negative /uL (Negative) Urine Nitrite 2+ (Negative) Urine Bilirubin Negative (Negative) Urine Urobilinogen Normal mg/dL (Negative) Urine Leukocyte Esterase 3+ /uL (Negative) Urine RBC 10 /hpf (0 - 4) Urine Microscopic WBC 87 /HPF (0-5) Urine Squamous Epithelial Cells None seen /hpf (<5) Urine Bacteria Few /hpf (None Seen) Urine Mucus Few (None Seen) Urine Glucose 2+ mg/dL (Normal) Red Blood Cell Morphology Normal Other Laboratory Tests 08/27/24 05:35 Brief Hx & Hospital Course: Ms. Dee, 79-year-old female with a past medical history of dementia, diabetes mellitus, hyperlipidemia, atrial fibrillation, and hypertension, CAD s/p CABG, brought in by EMS from home due to altered level of consciousness (ALOC). Family reports that although the patient has been independently managing her insulin and glucose checks, she has shown increasing confusion recently. Today, she was more confused than usual; EMS found her blood glucose at 67, and she improved from A/O x2 to A/O x4 after receiving iv glucose. She also reports hip pain but denies chest pain, shortness of breath, nausea, vomiting, diarrhea, dizziness, headache, fever, or chills. In the ED, she received IV fluids and antibiotics per sepsis protocol for UTI with nonspecific symptoms. Labs revealed leukopenia (WBC 2.5), hyponatremia (Na 120), and elevated troponins (260 and 209) low sodium, and SIADH is under evaluation. Differential includes dehydration, seizure, stroke and possible cardiac involvement. [employer] confirmed authorization #[id number], not stable for transfer. Poor historian, needs further information. Family not reachable/present bedside. PCP: Dr. Cruz, ([employer]) Past medical /surgical history: Dementia, diabetes mellitus type 2 for the past 18 years, hyperlipidemia, ?atrial fibrillation, hypertension, CAD status post CABG During the hospitalization, patient received IV glucose and her mentation improved, during my evaluation she was A&O x4. Patient was started on IV ceftriaxone given cystitis and urine bacterial culture was ordered which preliminary was negative. Kidney ultrasound was unremarkable. Blood cultures were negative preliminary. She was started on IV NS at 75 cc/hour and Accu- Cheks were ordered. Seizure precautions, fall precautions were placed. Head CT showed no evidence of acute intracranial hemorrhage. Patient had elevated troponin, EKG was unremarkable, she was started on aspirin and atorvastatin. She was diagnosed with NSTEMI type 2. Chest x-ray was unremarkable. Patient also had hypotonic hypovolemic hyponatremia as the serum osmolality was 254, serum sodium increased slowly from 120-129. We held patient's antihypertensive during the stay given blood pressure was within the normal range with regards to her age. Behzad stockings were provided. 08/26-around 4:00 a.m. a rapid response was called as the patient was experiencing generalized weakness, and dizziness and was about to faint. Blood glucose was appropriate and vitals were stable. COVID testing was performed and patient was COVID positive. ABGs showed respiratory alkalosis. EKG showed sinus rhythm. Patient reoriented herself within minutes. Carotid Doppler was completed which was unremarkable. Echocardiogram was completed showed EF 60%, normal RV function, mild TR, mild MR. No pericardial effusion mass or vegetation. 08/27-patient is hemodynamically stable, clinically stable therefore she has been discharged home on nitrofurantoin 100 mg p.o. b.i.d. for the next 5 days, vitamin-C tablets and is advised to resume home medications. 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 Patient to discharge planning. Operations or Procedures ORDERING PHYSICIAN: EPIFANIO GILBERT RESIDENT PROCEDURE(s): CARCL - CAROTID DUPLX W COLOR DOP REASON: recurrent fainting episodes ORDER NUMBER(s): [id number], ACCESSION NUMBER(s): [id number] Carotid Duplex Date: 08/27/2024 12:28 PM Clinical History: recurrent fainting episodes Comparison: None Technique: Duplex doppler evaluation of the extracranial carotid and vertebral arteries including color doppler and spectral/pulsed waveform analysis was performed. Findings: RIGHT SIDE: The peak systolic velocities are 64 cm/s in the distal CCA and 110 cm/s in the distal ICA.The ICA/CCA ratio is less than 2. The external carotid artery is patent with peak systolic velocity of 90 cm/s proximally. There is appropriate antegrade flow in the right vertebral artery. LEFT SIDE: The peak systolic velocities are 85 cm/s in the distal CCA and 94cm/s in the distal ICA. The ICA/CCA ratio is less than 2. The external carotid artery is patent with peak systolic velocity of 81 cm/s proximally. There is appropriate antegrade flow in the left vertebral artery. IMPRESSION: 1. No hemodynamically significant stenosis noted in the right carotid system. 2. No hemodynamically significant stenosis noted in the left carotid system. 3. Reference: Radiology 2003; [id number]:[id number] AGE / SEX: 79 / FADM STATUS: ADM INSERVICE 0013 ORDERING PHYSICIAN: ORI LANE PROCEDURE(s): ECIDC - ECHO 2D MODE CARDIAC DOP REASON: rule out structural disease in hemodynamically challenged ORDER NUMBER(s): [id number], ACCESSION NUMBER(s): [id number] APPROVED REPORT EXAM: Two-dimensional and M-mode echocardiogram with Doppler and color Doppler. Blood Pressure: 150/70 mmHg INDICATION Rule out structural disease in hemodynamically challenged RISK FACTORS Height: 66, Weight: 149 DIMENSIONS LVDd 4.1 (3.8-5.7cm) LA (2D) 3.8 (1.9-4.0cm) Aortic Root 2.9 (2.0- 3.7cm) LVDs 2.9 (2.5-4.0cm) LA (MM) (1.9-4.0cm) Aortic Cusp Exc 1.3 (1.5- 2.0cm) EF (%) 57.0 (55-70%) Rt. Atrium 3.6 (1.9-4.0cm) Asc. Aorta cm IVSd 1.2 (0.7-1.1cm) RV (D) (1.8-2.4cm) PWd 1.3 (0.7-1.1cm) Mitral Valve Mitral Mitral Stenosis E wave 0.77m/s MV Mean GR. mmHg A wave 0.75m/s MV Peak GR. 148mmHg E/A ratio 1.0 2D MVA cm2 DECEL Time 249ms PRESS 1/2 Time 77ms IVRT ms Dop MVA 2.87cm2 Aortic Valve Aortic Valve Aortic Stenosis V1 0.72m/s AO Mean GR. 9mmHg V2 1.88m/s AO Peak GR. 14mmHg LVOT Diameter 2.0 (1.8-2.4cm) Doppler JOANNA 1.20cm2 Pulmonic Valve V2 0.91m/s Other Information Technically limited study due to body habitus. Conclusion Technically good study. Sinus rhythm. Mild left atrial enlargement. Valves are normal. EF of 60% with normal RV function. Mild TR. Mild MR. No pericardial effusion masses or vegetations. SIGNED BY: ANGIE MLALORY Sr., MD SIGNED DATE/TIME: 08/26/24 9427 CC: Condition at Discharge: Stable Final Diagnosis/Problems List Altered level of consciousness likely secondary to hypoglycemia and autonomic dysfunction Acute metabolic encephalopathy Sepsis due to Acute cystitis Uncontrolled diabetes mellitus-A1c 8.5 NSTEMI type 2 History of CAD status post CABG Hypotonic hypovolemic hyponatremia Hypertension Likely autonomic dysfunction History of dementia Starvation ketosis Dyslipidemia Discharge Disposition: Home Discharge Instruct/Medications Diet: Cardiac 2g Na,low cholest Activity: Light activity Follow Up/Referral: Follow up with primary care physician at outpatient within 7 days Medications: Macrobid 100 mg twice daily for the next 5 days Discharge Statement: "Patient was advised to return to the ER or call 911 if any headaches, dizziness, shortness of breath, chest pain, abdominal pain, bleeding, fevers, or worsening of medical condition. Patient was counseled about treatment plan, medications, possible side effects, patientverbalized understanding. All questions were answered to the best of my ability. This discharge took greater then 30 minutes in planning, reviewing documentation, counseling the patient, and discussing with other team members." ASSESSMENT ASSESSMENT Assessment Altered level of consciousness likely secondary to hypoglycemia Acute metabolic encephalopathy Sepsis dur to Acute cystitis EPIFANIO GILBERT RESIDENT Aug 27, 2024 12:25
[2024-08-27 12:37] VITALS: BP 136/75; PULSE 107; RESP 16; TEMP 98.1; O2SAT 100
--- NOTE | 2024-08-27 13:14 | DVH ---
Carotid Duplex Date: 08/27/2024 12:28 PM Clinical History: recurrent fainting episodes Comparison: None Technique: Duplex doppler evaluation of the extracranial carotid and vertebral arteries including col or doppler and spectral/pulsed waveform analysis was performed. Findings: RIGHT SIDE: The peak systolic velocities are 64 cm/s in the distal CCA and 110 cm/s in the distal ICA.The ICA/CC A ratio is less than 2. The external carotid artery is patent with peak systolic velocity of 90 cm/s proximally. There is appropriate antegrade flow in the right vertebral artery. LEFT SIDE: The peak systolic velocities are 85 cm/s in the distal CCA and 94cm/s in the distal ICA. The ICA/CCA ratio is less than 2. The external carotid artery is patent with peak systolic velocity of 81 cm/s proximally. There is appropriate antegrade flow in the left vertebral artery. IMPRESSION: 1. No hemodynamically significant stenosis noted in the right carotid system. 2. No hemodynamically significant stenosis noted in the left carotid system. 3. Reference: Radiology 2003; 229:[id number]
[2024-08-27 14:23] VITALS: BP 153/87; PULSE 110; RESP 18; TEMP 98.7; O2SAT 100
== END 2024-08-27 15:05 | disposition home or self-care (01) | DRG 871 ==
LOC: EDBD 11:59 → ER 12:07 → OVERFLOW 08-25 00:13 → TELE-EAST 08-25 06:10
PROVIDERS: ADMIT Internal Medicine Geriatric Medicine; ATTEND Emergency Medicine
DX: A41.9 Sepsis, unspecified organism (principal); G93.41 Metabolic encephalopathy; I21.A1 Myocardial infarction type 2; U07.1 COVID-19; E87.1 Hypo-osmolality and hyponatremia; N30.00 Acute cystitis without hematuria; E11.649 Type 2 diabetes mellitus with hypoglycemia without coma; F03.90 Unspecified dementia, unspecified severity, without behavioral disturbance, psychotic disturbance, mood disturbance, and anxiety; I48.91 Unspecified atrial fibrillation; I10 Essential (primary) hypertension; E78.5 Hyperlipidemia, unspecified; T73.0XXA Starvation, initial encounter; X58.XXXA Exposure to other specified factors, initial encounter; R82.4 Acetonuria; E86.1 Hypovolemia; G90.89 Other disorders of autonomic nervous system; I25.10 Atherosclerotic heart disease of native coronary artery without angina pectoris; Z79.899 Other long term (current) drug therapy; Z95.1 Presence of aortocoronary bypass graft
CPT/HCPCS: 36415; 36600; 70450; 71045; 76775; 80048; 80053; 80307; 81001; 82043; 82306; 82570; 82607; 82805; 82962; 83036; 83605; 83735; 83930; 83935; 84100; 84133; 84156; 84295; 84425; 84443; 84484; 85007; 85025; 85027; 85610; 85730; 87040; 87086; 87426; 87804; 93005; 93306; 93886; 96365; 97163; 99291; G0378; J1815; J2003; J2470